=== PATIENT | female | born 1950 | race Caucasian/White ===

== ENCOUNTER → 2016-08-25 | Outpatient (CLI) | payer OTHER, MEDICARE ==
[~2016-08-25] MED LIST: AZOR 5 MG-40 MG1 TAB PO; BIOTIN1000 MCG PO; BYSTOLIC10 MG PO; LEVOTHYROXIN0.125 M1 PO; PRAVACHOL40 MG PO; ZOFRAN4 MG PO
--- NOTE | 2016-08-25 15:01 | RADIOLOGY REPORT PS360 ---
HAND-RT 3 VIEWS HISTORY: ARTHRITIS ORDERING PHYSICIAN: Beck Pham MD PATIENT AGE: 65 years COMPARISON: July 19, 2015 FINDINGS: Severe osteoarthritic changes involve the first metacarpal carpal joint. Lucency has developed at the distal aspect of the proximal phalanx of the second digit and the proximal aspect of the distal phalanx of the second digit consistent with endplate erosive change along with bony spurring having a somewhat gullwing appearance which may be seen with psoriatic arthritis. Erosive osteoarthritis also a consideration. Mild osteoarthritic changes are present involving the third and fourth digits at the PIP and DIP. No acute fracture. IMPRESSION: 1. Erosive changes at the DIP of the second digit with small osteophytes creating a filling appearance which may be seen with psoriatic arthritis or erosive osteoarthritis. Mild soft tissue swelling. 2. Osteoarthritic change of the first metacarpal carpal joint and second and third fingers
--- NOTE | 2016-08-25 15:02 | RADIOLOGY REPORT PS360 ---
HAND-LT-3 VIEWS HISTORY: ARTHRITIS ORDERING PHYSICIAN: Beck Pham MD PATIENT AGE: 65 years FINDINGS: Mild osteoarthritic changes are present involving the first metacarpal carpal joint. The first metacarpophalangeal joint and interphalangeal joint, the DIP of the third digit. No erosive changes evident. No fracture or dislocation. 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
== END ==
LOC: RAD 12:26
DX: M19.042 Primary osteoarthritis, left hand (principal); M19.041 Primary osteoarthritis, right hand

== ENCOUNTER → 2017-04-27 | Outpatient (CLI) | payer OTHER, MEDICARE ==
[2017-04-27 11:09] LABS: BUN 16 mg/dL (7-18)
[2017-04-27 11:19] LABS: GFR (ESTIMATED) 35 ML/MIN (59-)
== END ==
LOC: LAB 09:12
PROVIDERS: Nurse Practitioner
DX: C50.911 Malignant neoplasm of unspecified site of right female breast (principal); N28.9 Disorder of kidney and ureter, unspecified; R53.83 Other fatigue

== ENCOUNTER → 2017-05-01 | Outpatient (CLI) | payer OTHER, MEDICARE ==
--- NOTE | 2017-05-01 10:57 | RADIOLOGY REPORT PS360 ---
BONE DENSITOMETRY(HIP:LT SPINE HISTORY: BREAST CA, RT PRIMARY, RENAL INSUFFICIENCY, FATIGUE,SCREEN ORDERING PHYSICIAN: Marcelo Dumont MD PATIENT AGE: 66 years COMPARISON: None FINDINGS: The BMD measured at the right femoral neck is 1.044 g/cm squared with a T score of 0.0. This is considered normal according to the World [employer] Organization criteria. Fracture risk is low. Suggest follow-up exam April 2019. Lumbar spine density has a T score of 2.9. IMPRESSION: Normal bone density.
== END ==
LOC: RAD 10:04
DX: Z78.0 Asymptomatic menopausal state (principal); Z13.820 Encounter for screening for osteoporosis; C50.911 Malignant neoplasm of unspecified site of right female breast